=== PATIENT | male | born 1960 | race African-American/Black ===

== ENCOUNTER 2019-03-24 15:00 | Emergency (ER) | payer BC, OTHER ==
[~2019-03-24] VITALS: Ht 170.2 cm; Wt 77.1 kg
[2019-03-24] MEDS ORDERED: ASPirin 81 mg TAB PO ONE (15:30)
[2019-03-24 15:46] LABS: Basophils # (auto) 0.1 uL; Basophils % (auto) 1.2 % (0.0-2.0); Eosinophils # (auto) 0.5 uL; Eosinophils % (auto) 10.4 % (0.0-7.0); Hematocrit 43.5 % (41.0-53.0); Hemoglobin 14.7 g/dL (13.5-17.5); Lymphocytes # (auto) 1.9 uL; Lymphocytes % (auto) 42.7 % (10.0-50.0); Mean Corpuscular Hemoglobin 31.4 pg (28.0-32.0); Mean Corpuscular Hgb Conc. 33.8 g/dL (32.0-36.0); Mean Corpuscular Volume 92.7 fL (80.0-100.0); Monocytes # (auto) 0.4 uL; Monocytes % (auto) 9.3 % (0.0-12.0); Neutrophils # (auto) 1.6 uL; Neutrophils % (auto) 36.4 % (37.0-80.0); Nucleated Red Blood Cells % 0.1 %; Platelet Count (auto) 219 10^3/uL (140-450); Red Blood Cells 4.69 10^6/uL (4.5-5.90); Red Cell Distribution Width 12.2 % (11.8-14.3); White Blood Cell 4.5 10^3/uL (4.4-10.8)
[2019-03-24 15:53] LABS: Alanine Aminotransferase 58 U/L (16-61); Albumin 4.3 g/dL (3.4-5.0); Anion Gap 6 (5-15); Blood Urea Nitrogen 13 mg/dL (7-18); Calcium 9.1 mg/dL (8.5-10.1); Carbon Dioxide 28 mmol/L (21-32); Chloride 110 mmol/L (98-107); Glucose 81 mg/dL (74-106); Potassium 4.3 mmol/L (3.5-5.1); Sodium 144 mmol/L (136-145)
[2019-03-24 15:58] LABS: Alkaline Phosphatase 86 U/L (45-117); Aspartate Aminotransferase 30 U/L (15-37); BUN/Creatinine Ratio 8.8; Bilirubin, Total 0.6 mg/dL (0.2-1.0); GFR African American 63 mL/min; GFR Non-African American 52 mL/min; Total Protein 7.7 g/dL (6.4-8.2)
[2019-03-24 17:41] VITALS: BP 179/85
== END 2019-03-24 17:47 | disposition home or self-care (01) ==
LOC: ER 15:00
DX: R07.89 Other chest pain (principal)
CPT/HCPCS: 36415; 71046; 80053; 84484; 85025; 93005

== ENCOUNTER 2024-12-30 20:38 | Emergency (ER) | payer BC, MEDICAID, OTHER ==
[~2024-12-30] VITALS: Ht 167.6 cm; Wt 77.2 kg
--- NOTE | 2024-12-30 21:53 | ED.PDOC ---
History of Present Illness HPI Comments 64-year-old male came to ER for headaches. Patient denies any medical problems. Denies taking any medications. States for the past month, he has been having intermittent episodes of right-sided facial numbness, tingling, associated with dizziness and headaches. So complaining of occasional chest discomfort. Upon arrival blood pressure was 190/118 mmHg Chief Complaint: Headache Time Seen by MD: 21:53 Primary Care Provider: LIAM Reviewed Notes: Nurses Notes Allergies: Coded Allergies: NO KNOWN ALLERGIES (Unverified , 03/24/19) Information Source: Patient Mode of Arrival: Ambulatory Severity: Moderate Timing: Weeks Duration: Intermittent Prehospital treatment: None Past Medical History PAST MEDICAL HISTORY: Denies Surgical History: Denies all surgeries Family History Family History: Reviewed,noncontributory to illness, Unobtainable Social History Smoker: Non-Smoker Alcohol: Denies ETOH Use Drugs: Denies Drug Use Lives In: Home Constitutional: denies: chills, diaphoresis, fatigue, fever, malaise, sweats, weakness, others EENTM: denies: blurred vision, double vision, ear bleeding, ear discharge, ear drainage, ear pain, ear ringing, eye pain, eye redness, hearing loss, mouth pain, mouth swelling, nasal discharge, nose bleeding, nose congestion, nose pain, photophobia, tearing, throat pain, throat swelling, voice changes, others Respiratory: denies: cough, hemoptysis, orthopnea, SOB at rest, shortness of breath, SOB with excertion, stridor, wheezing, others Cardiovascular: reports: chest pain; denies: dizzy spells, diaphoresis, Dyspnea on exertion, edema, irregular heart beat, left arm pain, lightheadedness, palpitations, PND, syncope, others Gastrointestinal: denies: abdomen distended, abdominal pain, blood streaked bowels, constipated, diarrhea, dysphagia, difficulty swallowing, hematemesis, melena, nausea, poor appetite, poor fluid intake, rectal bleeding, rectal pain, vomiting, others Genitourinary: denies: burning, dysuria, flank pain, frequency, hematuria, incontinence, penile discharge, penile sore, pain, testicle pain, testicle swelling, urgency, others Neurological: reports: dizziness, headache, numbness, tingling; denies: faint ing, left sided numbness, left sided weakness, paresthesia, pre-existing deficit, right sided numbness, right sided weakness, seizure, speech problems, tremors, weakness, others Musculoskeletal: denies: back pain, gout, joint pain, joint swelling, muscle pain, muscle stiffness, neck pain, others Integumetry: denies: bruises, change in color, change in hair/nails, dryness, laceration, lesions, lumps, rash, wounds, others Allergic/Immunocompromised: denies: Difficulty Healing, Frequent Infections, Hives, Itching, others Hematologic/Lymphatic: denies: anemia, blood clots, easy bleeding, easy bruising, swollen glands, others Endocrine: denies: excessive hunger, excessive sweating, excessive thirst, excessive urination, flushing, intolerance to cold, intolerance to heat, unexplained weight gain, unexplained weight loss, others Psychiatric: denies: anxiety, bipolar disorder, depression, hopeless, panic disorder, schizophrenia, sleepless, suicidal, others Physical Exam General Appearance: No Apparent Distress, Normal HEENT: Normal ENT Inspection, Pharynx Normal, TMs Normal Neck: Full Range of Motion, Non-Tender, Normal, Normal Inspection Respiratory: Chest Non-Tender, Lungs Clear, No Accessory Muscle Use, No Respiratory Distress, Normal Breath Sounds Cardiovascular: No Edema, No JVD, No Murmur, No Gallop, Normal Peripheral Pulses, Regular Rate/Rhythm Breast Exam: Deferred Gastrointestinal: No Organomegaly, Non Tender, No Pulsatile Mass, Normal Bowel Sounds, Soft Genitalia: Deferred Pelvic: Deferred Rectal: Deferred Extremities: No calf tenderness, Normal capillary refill, Normal inspection, Normal range of motion, Non-tender, No pedal edema Musculoskeletal : Apperance: Normal Neurologic: Alert, consulting practice manager II-XII nml as Tested, No Motor Deficits, Normal Affect, Normal Mood, No Sensory Deficits Cerebellar Function: Normal Reflexes: Normal Skin: Dry, Normal Color, Warm Lymphatic: No Adenopathy Was a procedure done? Was a procedure done?: No Differential Dx Considerations may include: Hypertensive urgency, CVA ,TIA, anxiety X-Ray, Labs, Meds, VS Vital Signs Date Time Temp Pulse Resp B/P (MAP) Pulse Ox O2 Delivery O2 Flow Rate FiO2 12/30/24 23:52 63 18 189/92 (124) 97 12/30/24 21:00 98.4 69 18 190/118 (142) 97 Lab Test 12/30/24 22:19 12/30/24 21:17 Range/Units Troponin I High Sensitivity 52 52 </=54 ng/L White Blood Count 5.5 4.4-10.8 10^3/uL Red Blood Count 4.80 4.5-5.90 10^6/uL Hemoglobin 14.7 13.5-17.5 g/dL Hematocrit 44.3 41.0-53.0 % Mean Corpuscular Volume 92.4 80.0-100.0 fL Mean Corpuscular Hemoglobin 30.7 28.0-32.0 pg Mean Corpuscular Hemoglobin Concent 33.2 32.0-36.0 g/dL Red Cell Distribution Width 12.5 11.8-14.3 % Platelet Count 198 140-450 10^3/uL Mean Platelet Volume 9.9 6.9-10.8 fL Neutrophils (%) (Auto) 35.4 L 37.0-80.0 % Lymphocytes (%) (Auto) 45.8 10.0-50.0 % Monocytes (%) (Auto) 11.9 0.0-12.0 % Eosinophils (%) (Auto) 5.9 0.0-7.0 % Basophils (%) (Auto) 1.0 0.0-2.0 % Neutrophils # (Auto) 2.0 1.6-8.6 10 ^3/uL Lymphocytes # (Auto) 2.5 0.4-5.4 10 ^3/uL Monocytes # (Auto) 0.7 0-1.3 10 ^3/uL Eosinophils # (Auto) 0.3 0-0.8 10 ^3/uL Basophils # (Auto) 0.1 0-0.2 10 ^3/uL Nucleated Red Blood Cells 0.4 % Sodium Level 142 136-145 mmol/L Potassium Level 3.4 L 3.5-5.1 mmol/L Chloride Level 106 98-107 mmol/L Carbon Dioxide Level 26 20-31 mmol/L Anion Gap 10 5-15 Blood Urea Nitrogen 12 9-23 mg/dL Creatinine 1.34 H 0.700-1.30 mg/dL Glomerular Filtration Rate Calc 59 >90 mL/min BUN/Creatinine Ratio 9.0 L 10.0-20.0 Serum Glucose 95 74-106 mg/dL Calcium Level 9.8 8.7-10.4 mg/dL EXAM: CT HEAD WITHOUT CONTRAST HISTORY: right sided facial pain COMPARISON: None TECHNIQUE: Axial images were obtained and reformatted in coronal and sagittal planes. All CT scans at this medical facility are performed using dose modulation techniques as appropriate to a performed exam including the following: Automated exposure control was utilized; adjustment of the MA and/or KV according to patient size; and use of iterative reconstruction technique. CT Dose: CTDI volume is 62 mGy. Dose-length product is 1229 mGy*cm FINDINGS: Supratentorial Region: No evidence for large acute territorial ischemia. No intracranial hemorrhage is noted. Posterior Fossa: No acute abnormality. Brainstem: Unremarkable. Sellar/Suprasellar Region: Unremarkable. Ventricles, Cisterns, Sulci: Age-appropriate. Orbits: Unremarkable. Paranasal Sinuses: Unremarkable. Mastoid Air Cells: Unremarkable. Vasculature: Unremarkable. Bones/Soft Tissues: No acute abnormality. Other: None. IMPRESSION: 1. No acute intracranial process. XY CHEST TWO VIEWS ROUTINE CLINICAL HISTORY: right facial numbness COMPARISON: None TECHNIQUE: Frontal and lateral view of the chest was obtained FINDINGS: Lines and Tubes: None Lungs: No focal consolidation. Pleura: No effusion. No pneumothorax. Cardiomediastinal contours: Unremarkable Bones: No acute osseous abnormality. IMPRESSION: No acute cardiopulmonary disease. Time of 1ST Reevaluation: 21:36 Reevaluation 1ST: Unchanged Patient Education/Counseling: Diagnosis, Treatment Family Education/Counseling: No Family Present Departure 1 Departure Time of Disposition: 00:14 (Patient presented with hypertension and symptoms concerning for hypertensive emergency. Patient is receiving iv blood pressure medications requiring intensive monitoring. Data: 1. I ordered and reviewed the result of at least 3 labs including a CBC, BMP, and Urinalysis. 2. I independently interpreted the following tests: CT Brain: Which appears benign. EKG which is Normal Sinus RhythmRisk:This patient has a high risk of morbidity due to further diagnostic testing or treatment and may suffer from an acute cardiac disorder. Workup reveals hypertensive emergency and patient should be admitted for further workup. and possible expert consultation. ) Impression: Primary Impression: Hypertensive emergency Disposition: 09 ADMITTED INPATIENT Admit to: Med Surg Condition: Serious Critical Care Note Critical Care Time?: Yes (35 min-critical care time only) Critical care comment: Hypertensive emergency Authorized and Performed by: Jennifer Doty MD Total critical care time: Approximately 38 minutes Due to a high probability of clinically significant, life threatening deterioration, the patient required my highest level of preparedness to intervene emergently and I personally spent this critical care time directly and personally managing the patient. This critical care time included obtaining a history; examining the patient; pulse oximetry; ordering and review of studies; arranging urgent treatment with development of a management plan; evaluation of patient's response to treatment; frequent reassessment; and, discussions with other providers. This critical care time was performed to assess and manage the high probability of imminent, life-threatening deterioration that could result in multi-organ failure. It was exclusive of separately billable procedures and treating other patients and teaching time. Please see my other sections and the rest of the note for further information on patient assessment and treatment. Stability Stability form required: No Heart Score Heart Score: Heart Score Response (Comments) Value History N/A 0 EKG N/A 0 Age N/A 0 Risk Factors N/A 0 Troponin N/A 0 Total 0 I personally scribed for JENNIFER DOTY MD (MARIC[facility]) on 12/30/24 at 21:53. Electronically submitted by Dewayne Palm ([facility]). I personally scribed for JENNIFER DOTY MD (MARICEL) on 12/30/24 at 22:33. Electronically submitted by Dewayne Palm ([facility]). JENNIFER DOTY MD Dec 30, 2024 21:53
[2024-12-30 21:57] LABS: Basophils # (auto) 0.1 10 ^3/uL (0-0.2); Eosinophils # (auto) 0.3 10 ^3/uL (0-0.8); Eosinophils % (auto) 5.9 % (0.0-7.0); Hematocrit 44.3 % (41.0-53.0); Hemoglobin 14.7 g/dL (13.5-17.5); Lymphocytes # (auto) 2.5 10 ^3/uL (0.4-5.4); Lymphocytes % (auto) 45.8 % (10.0-50.0); Mean Corpuscular Hemoglobin 30.7 pg (28.0-32.0); Mean Corpuscular Hgb Conc. 33.2 g/dL (32.0-36.0); Mean Corpuscular Volume 92.4 fL (80.0-100.0); Monocytes # (auto) 0.7 10 ^3/uL (0-1.3); Monocytes % (auto) 11.9 % (0.0-12.0); Neutrophils % (auto) 35.4 % (37.0-80.0); Nucleated Red Blood Cells % 0.4 %; Platelet Count (auto) 198 10^3/uL (140-450); Red Cell Distribution Width 12.5 % (11.8-14.3); White Blood Cell 5.5 10^3/uL (4.4-10.8)
--- NOTE | 2024-12-30 21:59 | DVH ---
EXAM: CT HEAD WITHOUT CONTRAST HISTORY: right sided facial pain COMPARISON: None TECHNIQUE: Axial images were obtained and reformatted in coronal and sagittal planes. All CT scans at this medical facility are performed using dose modulation techniques as appropriate t o a performed exam including the following: Automated exposure control was utilized; adjustment of th e MA and/or KV according to patient size; and use of iterative reconstruction technique. CT Dose: CTDI volume is 62 mGy. Dose-length product is 1229 mGy*cm FINDINGS: Supratentorial Region: No evidence for large acute territorial ischemia. No intracranial hemorrhage is noted. Posterior Fossa: No acute abnormality. Brainstem: Unremarkable. Sellar/Suprasellar Region: Unremarkable. Ventricles, Cisterns, Sulci: Age-appropriate. Orbits: Unremarkable. Paranasal Sinuses: Unremarkable. Mastoid Air Cells: Unremarkable. Vasculature: Unremarkable. Bones/Soft Tissues: No acute abnormality. Other: None. IMPRESSION: 1. No acute intracranial process.
--- NOTE | 2024-12-30 22:01 | DVH ---
XY CHEST TWO VIEWS ROUTINE CLINICAL HISTORY: right facial numbness COMPARISON: None TECHNIQUE: Frontal and lateral view of the chest was obtained FINDINGS: Lines and Tubes: None Lungs: No focal consolidation. Pleura: No effusion. No pneumothorax. Cardiomediastinal contours: Unremarkable Bones: No acute osseous abnormality. IMPRESSION: No acute cardiopulmonary disease.
[2024-12-30 22:02] LABS: Chloride 106 mmol/L (98-107); Sodium 142 mmol/L (136-145)
[2024-12-30 22:03] LABS: Anion Gap 10 (5-15); Carbon Dioxide 26 mmol/L (20-31)
[2024-12-30 22:04] LABS: Calcium 9.8 mg/dL (8.7-10.4)
[2024-12-30 22:08] LABS: Blood Urea Nitrogen 12 mg/dL (9-23); Glucose 95 mg/dL (74-106)
[2024-12-30 22:11] LABS: Potassium 3.4 mmol/L (3.5-5.1)
[2024-12-31] MEDS: hydrALAZINE HCL 20 MG/ML VL IV ONE ×2 (01:55→03:15)
[2024-12-31] MEDS: KETOROLAC TROMETH 30 MG/ML 1ML VIAL IV ONE (01:56)
[2024-12-31] MEDS: POTASSIUM CHL 20 Meq TABLET PO ONE (01:56)
[2024-12-31] MEDS: ONDANSETRON HCL 4 MG/2 ML VIAL IV ONE (01:56)
[2024-12-31] MEDS: ACETAMINOPHEN 325 MG TAB PO ONE (02:05)
[2024-12-31] MEDS: IOHEXOL 350 MG/ML 100ML IJ ONE (03:13)
[2024-12-31] MEDS: amLODIPine BESYLATE 5 MG TAB PO ONE (03:38)
[2024-12-31] MEDS ORDERED: HYDR12.59 PO (04:07)
[2024-12-31] MEDS ORDERED: AMLO1TAB23 PO (04:07)
--- NOTE | 2024-12-31 04:37 | DVH ---
INDICATION: right face parasthesias COMPARISON: Noncontrast CT 12/30/2024 TECHNIQUE: CTA head with intravenous contrast. CTA neck with intravenous contrast. 100 cc of Omnipa que 350. 3D image postprocessing was performed on a dedicated workstation and images were used for in terpretation and reporting. All CT scans at this medical facility are performed using dose modulation techniques as appropriate to a performed exam including the following: Automated exposure control wa s utilized; adjustment of the MA and/or KV according to patient size; and use of iterative reconstruc tion technique. Radiation Dose Information: CT Dose: CTDI volume is 63.2 mGy. Dose-length product is 2281.8 mGy*cm FINDINGS: CTA head: There is normal enhancement of the internal carotid, anterior and middle cerebral arteries. There i s a normal anterior communicating artery complex. There are bilateral posterior communicating arteri es. The vertebral, basilar, cerebellar and posterior cerebral arteries are within normal limits. Th e early parenchymal enhancement is grossly unremarkable. The visualized intracranial venous structur es are grossly unremarkable. CTA neck: The visualized thoracic aortic arch and proximal great vessels are unremarkable. The left common, internal and external carotid arteries are within normal limits. The right common, internal and external carotid arteries are within normal limits. The cervical segments of the right and left vertebral arteries are within normal limits. The limited visualized lung apices demonstrate chronic appearing changes. Parapharyngeal tonsils cedrick ear prominent. IMPRESSION: 1. No acute findings. HS:Y
[2024-12-31] MEDS: SODIUM CHLORIDE 0.9% 1,000 ML IV ONE (05:17)
[2024-12-31] MEDS: hydroCHLOROthiazide 25 MG TAB PO ONE (05:17)
[2024-12-31 05:33] VITALS: BP 160/88; PULSE 81; RESP 81; TEMP 98; O2SAT 97
--- NOTE | 2024-12-31 21:44 | DVHINCON2 ---
DATE OF CONSULTATION: 12/31/2024 CHIEF COMPLAINT: Coming in for headache and right face paresthesias x1 month. HISTORY OF PRESENT ILLNESS: This is a 64-year-old gentleman with significant past medical history for cervical neck C3-C4 pinched nerve with history of left ventricular hypertrophy and repolarization abnormality, who presents to Emergency Room with complaints of headaches as well as right facial paresthesias for about 1 month now. The patient says that he has been having these symptoms of headaches for about a month and having off and on symptoms of right facial numbness for about a month now, but has not sought any medical attention. He does not typically see any providers. His last evaluation was about 2 years ago when he saw Cardiology due to abnormal EKG, which he was sent apparently to Dr. Miranda for an abnormal EKG. The patient says currently he feels a little bit of tightness in his chest, typically when lying flat and mostly when lying on his left side and lying down. The patient says he does not have any exertional chest pain symptoms. 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 He is not retired and does not have any exertional shortness of breath or chest pain symptoms, but these symptoms of his current headaches and this mild tightness, which occurs again while lying flat on his left side, has been going on for the past month. He denies any orthopnea symptoms, any lower extremity edema. He otherwise denies having any recent sicknesses, any fevers or chills, diarrhea, constipation, bloody or tarry stools. No focal deficits. The patient says that he checked his blood pressure using his 's blood pressure machine and found that his blood pressure is consistently elevated and came in for further assessment and evaluation today. The patient otherwise denies any facial asymmetry. He does not have any noise or light sensitivity and denies any history of any migraines in the past. PAST MEDICAL HISTORY: Cervical neck C3-C4 pinched nerve. PAST SURGICAL HISTORY: Denies any prior surgeries. SOCIAL HISTORY: No tobacco, no alcohol, no illicit drugs. MEDICATIONS AT HOME: The patient takes baby aspirin 81 mg once a day. ALLERGIES: PENICILLINS. REVIEW OF SYSTEMS: A 10-point review of system was covered with the patient and was negative with exception to those present in history of present illness. PHYSICAL EXAMINATION: VITAL SIGNS: Temperature 98.4, pulse rate of 69, respiratory rate of 18, blood pressure of 190/118, pulse ox of 97% on room air. GENERAL: Seems to be alert and oriented x4, not in acute distress male, sitting up in a chair. HEENT: Normocephalic, atraumatic. Extraocular muscles intact. Pupils are equally round, reactive to light and accommodation. Mucous membranes are moist. CARDIOVASCULAR: S1, S2 positive, regular rate and rhythm. No rubs, gallops or murmurs. LUNGS: Clear to auscultation bilaterally. No wheezing, rhonchi or rales. ABDOMEN: Seems to be soft, nontender, nondistended, positive bowel sounds. No guarding or rebound. EXTREMITIES: Lower extremities, no lower extremity edema, clubbing or cyanosis. NEUROLOGIC: No focal deficits. Cranial nerves testing II-XII overall seems to be intact. LABORATORY WORKUP: Shows a white count of 5.5, H and H of 14.0 and 44.3, platelet count of 198,000. Sodium 142, potassium 3.4, chloride 106, carbon dioxide 26, anion gap of 10, BUN of 12, creatinine 1.34, glucose of 95. Troponins of 52, 52, and 49. IMAGING: Chest x-ray shows no acute cardiopulmonary disease process. Head CT noncon shows no acute intracranial process and CT angio head and neck was also completed, shows no acute findings of the cervical, neck or head acute findings. EKG showed sinus rhythm, ventricular rate 66 with left ventricular hypertrophy and repolarization abnormality seen with T-wave inversions in V2-V6, which seems to be consistent with old prior EKG readings from his 2019 assessment here in our hospital. DIAGNOSES: * Right facial paresthesias. * Hypertensive urgency. * Headaches. * Abnormal EKG. PLAN: The patient was kept in the Emergency Room. The patient was given ketorolac 15 mg IV, acetaminophen 650 p.o. x1 for headache symptoms, which improved. The patient blood pressures were controlled with 2 doses of hydralazine 10 mg IV pushes in combination with Norvasc 10 mg, which brought the patient's blood pressures down. The patient overall had good resolution of his paresthesias of his face as well as his headaches and the patient feels improved and wants to go home. The patient did have CT of the head, which showed no acute pathology as well as CT angio of the head and neck, which showed no large vessel occlusions. The patient's symptoms seems to be associated with his hypertensive urgency leading to his symptoms of facial paresthesias. The patient from my standpoint does not seem to have had TIA or stroke, symptoms seems to be correlating with his elevated blood pressures. The patient will be recommended to continue his aspirin enteric coated 81 mg a day and additionally, we will start him on Norvasc 10 mg p.o. daily as well as hydrochlorothiazide 12.5 p.o. daily. We will have the patient monitor his blood pressure twice a day and maintain a log to present to his primary care provider. The patient will also be ordered MRI noncon of his head for outpatient workup to exclude underlying stroke again. This is a very low likelihood as the patient has had symptoms for over a month now, which seems to be intermittent and likely associated with his uncontrolled blood pressures. The patient will be arranged for PCP followup within the next 5-7 days and we will give him a referral to his multi operation machine operator, Dr. Miranda, given his abnormal EKG findings, which seems to be chronic and unchanged from the past. The patient does have LVH, likely due to his underlying uncontrolled hypertension as well as repolarization abnormality, which seems to have been present also on his EKG from 2019. The patient otherwise is cleared from my standpoint to be discharged home. The patient to return to the ER in case of any chest pain, shortness of breath, dizziness, palpitations, nausea, vomiting, fevers, chills, focal neurological weakness or any recurrence of headaches. Hood Blake MD LM/AIDEN TID: [id number] RECEIPT: [id number]
--- NOTE | 2025-01-02 15:20 | ECG ---
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
== END 2024-12-31 05:37 | disposition home or self-care (01) ==
LOC: ER 20:38
DX: I16.1 Hypertensive emergency (principal); R51.9 Headache, unspecified; Z79.899 Other long term (current) drug therapy
CPT/HCPCS: 36415; 70450; 70460; 70491; 71046; 80048; 84484; 85025; 93005; 96374; 96375; 96376; 99285; J0360; J1885; Q9967; J2405

== ENCOUNTER 2025-09-24 03:43 | Emergency (ER) | payer MEDICAID, OTHER ==
[~2025-09-24] VITALS: Ht 162.6 cm; Wt 73.5 kg
[~2025-09-24 03:43] MED LIST: AMLO1TAB23 PO; HYDR12.59 PO
[2025-09-24 03:44] VITALS: BP 165/105; PULSE 60; RESP 16; TEMP 97.7; O2SAT 99
== END 2025-09-24 04:41 | disposition left against medical advice (07) ==
LOC: ER 03:43
DX: M54.9 Dorsalgia, unspecified (principal); Z53.1 Procedure and treatment not carried out because of patient's decision for reasons of belief and group pressure